=== PATIENT | female | born 1995 | race Caucasian/White ===

== ENCOUNTER 2023-01-15 12:52 | Emergency (ER) | payer BC, SELFPAY ==
[2023-01-15 13:03] VITALS: BP 100/65; PULSE 83; RESP 18; TEMP 36.8; O2SAT 97; BMI 19.7
--- NOTE | 2023-01-15 14:03 | ED.GENADULT ---
HPI - General Adult General Chief complaint: Urogenital Problems, Female Stated complaint: left flank pain, difficulty urinating Time Seen by Provider: 01/15/23 13:42 History of Present Illness HPI narrative: pt has been having dysuria for a few days, today having left flank pain 27-year-old female to male presenting to the emergency department with concern of painful urination. Symptoms now about 2 days. Has developed some left flank pain now. Hurts ?fucking bad?. No fever. Has been pushing fluids. No vomiting. No nausea noted. Has had urinary tract infections before. Related Data Home Medications Medication Instructions Recorded Confirmed pramipexole 0.125 mg tablet 0.125 mg PO DAILY 01/15/23 01/15/23 (Mirapex) testosterone 50 mg/mL 25 mg IM 01/15/23 intramuscular solution Previous Rx's Medication Instructions Recorded ciprofloxacin 500 mg/5 mL oral 500 mg (5 mL) PO BID 6 days #60 mL 01/15/23 suspension ciprofloxacin HCl 250 mg tablet 500 mg (2 x 250 mg) PO BID 6 days 01/15/23 #24 tabs hydrocodone 10 mg-acetaminophen 7.5 - 15 ml PO TID PRN pain #60 mL 01/15/23 325 mg/15 mL (15 mL) oral solution hydrocodone 5 mg-acetaminophen 325 1 - 2 tab PO TID PRN pain #8 tabs 01/15/23 mg tablet Allergies Allergy/AdvReac Type Severity Reaction Status Date / Time amoxicillin Allergy Verified 01/15/23 13:02 cefaclor [From Ceclor] Allergy Verified 01/15/23 13:02 clavulanic acid Allergy Verified 01/15/23 13:02 [From Augmentin] erythromycin base Allergy Verified 01/15/23 13:02 Penicillins Allergy Verified 01/15/23 13:02 Review of Systems Status of ROS: Reports: 6 or more systems reviewed and unremarkable except as noted in History and below PFSH PFS Social History Smoking Status: Unknown if ever smoked Exam Narrative: Exam Narrative: Curled up in exam chair clearly uncomfortable. Breathing easily though. Skin is warm and dry. Extremities well perfused without edema. Heart with regular rate and rhythm. Abdomen is soft. Pain somewhat reproducible in the left flank area. He often puts his hand at the flank there. Const: Vital Signs, click to edit/add: Vital Signs - 24 hr 01/15/23 13:03 Temperature 98.2 F Pulse Rate [Right Pulse Oximeter] 83 Respiratory Rate 18 Blood Pressure [Ri ght Upper Arm] 100/65 Pulse Oximetry 97 Oxygen Delivery Me thod Room Air Documenting provider has reviewed patient's vital signs: yes Course Vital Signs Vital signs: Initial Vital Signs Temperature 98.2 F 01/15/23 13:03 Temperature Source Temporal Artery Scan 01/15/23 13:03 Pulse Rate 83 01/15/23 13:03 Respiratory Rate 18 01/15/23 13:03 Blood Pressure 100/65 01/15/23 13:03 Blood Pressure Mean 76 01/15/23 13:03 Blood Pressure Position Sitting 01/15/23 13:03 Pulse Oximetry 97 01/15/23 13:03 Oxygen Delivery Method Room Air 01/15/23 13:03 Vital Signs Temperature 98.2 F 01/15/23 13:03 Pulse Rate 83 01/15/23 13:03 Respiratory Rate 18 01/15/23 13:03 Blood Pressure 100/65 01/15/23 13:03 Pulse Oximetry 97 01/15/23 13:03 Oxygen Delivery Method Room Air 01/15/23 13:03 Temperature 98.2 F 01/15/23 13:03 Pulse Rate 61 01/15/23 15:10 Respiratory Rate 16 01/15/23 15:10 Blood Pressure 89/64 L 01/15/23 15:10 Pulse Oximetry 97 01/15/23 15:10 Oxygen Delivery Method Room Air 01/15/23 15:10 Medical Decision Making MDM Narrative Medical decision making narrative: I think is reasonable to start here with urinalysis. Vitals look good. Differential includes cystitis, urinary tract infection otherwise possible pyelonephritis. Nephrolithiasis and ureteral stone/colic. Urinalysis is clearly positive and would seem to indicate infection. Reviewing records for allergies. Not convinced that these are full allergies. These will need to be clarified some point. This was discussed. [place] could use some pain management during time in the emergency department. Given ibuprofen and [place]. Markedly improved in this regard. I think I would treat this still as cystitis/UTI. See patient discharge plan. Lab Data Lab results reviewed: Yes I reviewed the patient's lab results Labs: Lab Results 01/15/23 Range/Units 13:23 Urine Color Yellow (Yellow) Urine Appearance Cloudy A (Clear) Urine pH 7.0 (5.0-8.5) Ur Specific [employer] 1.025 (1.000-1.030) Urine Protein 3+ A (Negative) Urine Glucose (UA) Negative (Negative) Urine Ketones Negative (Negative) Urine Blood 3+ A (Negative) Urine Nitrite Positive A (Negative) Urine Bilirubin Negative (Negative) Urine Urobilinogen 0.2 (0.2-1.0) Ur Leukocyte Esterase 1+ A (Negative) Urine RBC 10-25 A (0-2) Urine WBC 25-50 A (0-5) Urine WBC Clumps Few A (None) Ur Squamous Epith Cells Few (None-Few) Urine Bacteria Moderate A (None) Discharge Plan Discharge Clinical Impression: UTI (urinary tract infection) Patient Disposition: Home w/ Parent or Adult Condition: Stable Additional Instructions: Focus on hydration with unsugared/unsweetened liquid -- like water. Be seen for repeated vomiting, fever, marked increase in uncontrolled pain Urine culture will be pending here. Prescriptions: New ciprofloxacin 500 mg/5 mL suspension,microcapsule recon 500 mg PO BID 6 Days Qty: 60 0RF hydrocodone-acetaminophen 10-325 mg/15 mL(15 mL) solution 7.5 - 15 ml PO TID PRN (Reason: pain) Qty: 60 0RF ciprofloxacin HCl 250 mg tablet 500 mg PO BID 6 Days Qty: 24 0RF hydrocodone-acetaminophen 5-325 mg tablet 1 - 2 tab PO TID PRN (Reason: pain) Qty: 8 0RF Rx Instructions: cut in half as needed No Action testosterone 50 mg/mL solution 25 mg IM pramipexole [Mirapex] 0.125 mg tablet 0.125 mg PO DAILY Follow Up/Referrals: Niki Rodarte MD [Primary Care Provider] - Stand Alone Forms: [employer] Info Instructions
[2023-01-15 14:16] LABS: Appearance Urine Cloudy (Clear); Bilirubin Urine Negative (Negative); Blood Urine 3+ (Negative); Color Urine Yellow (Yellow); Glucose Urine Negative (Negative); Ketones Urine Negative (Negative); Leukocyte Esterase Urine 1+ (Negative); Nitrite Urine Positive (Negative); Protein Urine 3+ (Negative); Specific Gravity Urine 1.025 (1.000-1.030); Urobilinogen Urine 0.2 (0.2-1.0)
[2023-01-15 14:27] LABS: WBC Clumps Urine Few; WBC Urine 25-50 (0-5)
[2023-01-15 14:28] LABS: Bacteria Urine Moderate; Squamous Epithelial Cell Urine Few (None-Few)
[2023-01-15] MEDS: IBUPROFEN 200 MG TABLET 600 MG PO (14:34)
[2023-01-15] MEDS: HYDROCODONE-ACETAMIN 5-325 MG 1 TAB 2 TAB PO (14:34)
[2023-01-15 15:10] VITALS: BP 89/64; PULSE 61; RESP 16; O2SAT 97
== END 2023-01-15 15:45 | disposition home or self-care (01) ==
PROVIDERS: Family Medicine; Emergency Provider Family Medicine; PCP Family Medicine
DX: N39.0 Urinary tract infection, site not specified (principal)
CPT/HCPCS: 81001; 87086; 87186; 99283; 99284; A9270

== ENCOUNTER 2023-09-09 15:47 | Emergency (ER) | payer BC, SELFPAY ==
[2023-09-09 16:02] VITALS: BP 121/76; PULSE 100; RESP 18; TEMP 37; O2SAT 95; BMI 19.8
== END 2023-09-09 17:27 | disposition left against medical advice (07) ==
PROVIDERS: Emergency Provider Emergency Medicine; PCP Family Medicine
DX: Z53.29 Procedure and treatment not carried out because of patient's decision for other reasons (principal)

== ENCOUNTER 2023-09-10 08:30 | Emergency (ER) | payer BC, SELFPAY ==
[2023-09-10 08:33] VITALS: BP 105/70; PULSE 99; RESP 18; TEMP 37.2; O2SAT 96
--- NOTE | 2023-09-10 08:43 | XR_ITS ---
Patient: GLENN BARROSO Facility:?[facility] Patient ID:?[id number] Site Patient ID:?[id number]. Site :?1995 Study:?XRay-Chest 2V-09/10/2023 9:09:22 AM Ordering Physician:NIRMALA Final Report: INDICATION: Chest pain. TECHNIQUE: Chest 2 views. COMPARISON: None. FINDINGS: Cardiovascular and mediastinum: Heart size and vasculature are normal in caliber and appearance. Lungs and pleural spaces: Subtle patchy opacity at the right lung base concerning for developing pneumonia. No sign of pleural effusion. No pneumothorax. Bones and soft tissues: No significant findings. IMPRESSION: Subtle patchy opacity at the right lung base concerning for developing pneumonia. Dictated by Glenn York MD @ 09/10/2023 9:17:24 AM ----- ADDENDUM ----- Corrected INDICATION: Cough, shortness of breath Dictated by Glenn York MD @ Sep 10 2023 9:17AM Signed by:?Glenn York MD @09/10/2023 9:17:24 AM (Electronic Signature)
--- NOTE | 2023-09-10 08:44 | ED.GENADULT ---
HPI - General Adult General Date Seen: 09/10/23 Chief complaint: Extremity Pain/Injury, Lower Stated complaint: left leg pain, radiates to back Time Seen by Provider: 09/10/23 08:37 Source: patient Mode of arrival: ambulatory Limitations: no limitations History of Present Illness HPI narrative: Patient is a 28-year-old presenting to the emergency department for muscle aches. States it is worse in his left thigh and goes up his back. Symptoms have been going on for the past 4 days a says now his whole body feels sore. Describes the pain as severe muscle cramps. Does admit to having respiratory symptoms. Initially had a sore throat that has since resolved. Is still having a cough and says he is coughing up phlegm. Denies having symptoms like this at home. Also states his [id number] is having respiratory symptoms also. Is not aware of any other sick contacts. Denies fevers, chills, diarrhea, constipation. States he is drinking plenty of fluids. Has occasional nausea but no vomiting. Currently he is feeling slightly nauseated. No other concerns noted at this time. Does feel mildly short of breath. Denies chest pain, abdominal pain, headache, weakness, numbness. Has been taking Tylenol and ibuprofen at home without improvement in symptoms Related Data Home Medications Medication Instructions Recorded Confirmed pramipexole 0.125 mg tablet 0.125 mg PO DAILY 01/15/23 09/09/23 (Mirapex) testosterone 50 mg/mL 25 mg IM .week 01/15/23 09/09/23 intramuscular solution Previous Rx's Medication Instructions Recorded ciprofloxacin 500 mg/5 mL oral 500 mg (5 mL) PO BID 6 days #60 mL 01/15/23 suspension ciprofloxacin HCl 250 mg tablet 500 mg (2 x 250 mg) PO BID 6 days 01/15/23 #24 tabs hydrocodone 10 mg-acetaminophen 7.5 - 15 ml PO TID PRN pain #60 mL 01/15/23 325 mg/15 mL (15 mL) oral solution hydrocodone 5 mg-acetaminophen 325 1 - 2 tab PO TID PRN pain #8 tabs 01/15/23 mg tablet cyclobenzaprine 10 mg tablet 10 mg PO TID PRN muscle spasm #15 09/10/23 tabs doxycycline hyclate 100 mg capsule 100 mg PO BID #10 caps 09/10/23 ketorolac 10 mg tablet 10 mg PO Q8H PRN pain #15 tabs 09/10/23 ondansetron 4 mg disintegrating 4 mg PO Q6H #20 tabs 09/10/23 tablet Allergies Allergy/AdvReac Type Severity Reaction Status Date / Time amoxicillin Allergy Verified 01/15/23 13:02 cefaclor [From Ceclor] Allergy Verified 01/15/23 13:02 clavulanic acid Allergy Verified 01/15/23 13:02 [From Augmentin] erythromycin base Allergy Verified 01/15/23 13:02 Penicillins Allergy Verified 01/15/23 13:02 Review of Systems Status of ROS: Reports: 10 or more systems reviewed and unremarkable except as noted in History and below [facility] Social History Smoking Status: Unknown if ever smoked Exam Narrative: Exam Narrative: Const: Well-nourished, Well-developed, in mild distress Eyes: PERRL, no conjunctival injection, and symmetrical lids HENT: Atraumatic external nose and ears. Moist mucous membranes. Neck: Symmetric, trachea midline, No thyromegaly. CVS: RRR, No murmurs or gallops. Peripheral pulses 2+ and equal in all extremities RESP: Unlabored respiratory effort. Clear to auscultation bilaterally. GI: Nontender/Nondistended, No rebound or guarding. MSK:Extremities w/o deformity, Normal Active ROM Skin: Warm, Dry. No rashes or lesions. Neuro: Normal Muscle tone, No focal neurological deficits. Psych: Awake, Alert, & Oriented x3. Appropriate mood and affect. Const: Vital Signs, click to edit/add: Vital Signs - 24 hr 09/10/23 08:33 Temperature 99.0 F Pulse Rate [Right Pulse Oximeter] 99 Respiratory Rate 18 Blood Pressure [Ri ght Upper Arm] 105/70 Pulse Oximetry 96 Oxygen Delivery Me thod Room Air Course Vital Signs Vital signs: Initial Vital Signs Temperature 99.0 F 09/10/23 08:33 Temperature Source Temporal Artery Scan 09/10/23 08:33 Pulse Rate 99 09/10/23 08:33 Respiratory Rate 18 09/10/23 08:33 Blood Pressure 105/70 09/10/23 08:33 Blood Pressure Mean 81 09/10/23 08:33 Blood Pressure Position Sitting 09/10/23 08:33 Pulse Oximetry 96 09/10/23 08:33 Oxygen Delivery Method Room Air 09/10/23 08:33 Vital Signs Temperature 99.0 F 09/10/23 08:33 Pulse Rate 99 09/10/23 08:33 Respiratory Rate 18 09/10/23 08:33 Blood Pressure 105/70 09/10/23 08:33 Pulse Oximetry 96 09/10/23 08:33 Oxygen Delivery Method Room Air 09/10/23 08:33 Temperature 99.0 F 09/10/23 08:33 Pulse Rate 99 09/10/23 08:33 Respiratory Rate 18 09/10/23 08:33 Blood Pressure 105/70 09/10/23 08:33 Pulse Oximetry 96 09/10/23 08:33 Oxygen Delivery Method Room Air 09/10/23 08:33 Medications Administered Medications: Discontinued Medications Generic Name Dose Route Start Last Admin Trade Name Freq PRN Reason Stop Dose Admin Cyclobenzaprine HCl 10 mg 09/10/23 08:42 09/10/23 09:11 Cyclobenzaprine Hcl 10 Mg Tablet PO 09/10/23 08:43 10 mg ONCE ONE Administration Ketorolac Tromethamine 30 mg 09/10/23 08:42 09/10/23 09:12 Ketorolac 30 Mg/Ml Inj IM 09/10/23 08:43 30 mg ONCE ONE Administration Ondansetron HCl 4 mg 09/10/23 08:46 09/10/23 09:12 Ondansetron Odt 4 Mg Tab PO 09/10/23 08:47 4 mg ONCE ONE Administration Medical Decision Making [facility] Narrative Medical decision making narrative: Patient is a 28-year-old presenting for muscle aches. He has also has what sounds like viral symptoms. At this time these muscle aches he most likely related to these viral symptoms. He is not vomiting and states he is taking adequate p.o. intake so do not believe this is related to electrolyte abnormalities. He does complain of mild shortness of breath and a productive cough so I will order chest x-ray. Will also order COVID/flu/RSV swab. Patient given Zofran for his nausea. Was given Toradol and Flexeril for his muscle aches. Chest x-ray showed concerns for subtle right lung base opacity that could be a developing pneumonia. This was reviewed by myself and the radiologist. I will start him on doxycycline due to his allergies. He states he cannot take azithromycin due to allergies. He is flu positive and is likely the cause of his muscle aches. He is feeling better after the medication will be discharged home. Is not within the window for Tamiflu. Lab Data Labs: Lab Results 09/10/23 Range/Units 08:43 SARS-CoV-2 (PCR) Negative SARS-CoV-2 (Negative) Influenza Type A (PCR) POSITIVE PCR FLU A A (Negative) Influenza Type B (PCR) Negative PCR FLU B (Negative) RSV (PCR) Negative PCR RSV (Negative) Imaging Data Chest x-ray: Radiologist's impression: Subtle patchy opacity at the right lung base concerning for developing pneumonia. Dictated by Glenn York MD @ 09/10/2023 9:17:24 AM ----- ADDENDUM ----- Corrected INDICATION: Cough, shortness of breath Dictated by Glenn York MD @ Sep 10 2023 9:17AM Discharge Plan Discharge Clinical Impression: Influenza Patient Disposition: Home, Self-Care Condition: Improved Instructions: Influenza (DC) Additional Instructions: Take the doxycycline as directed. Follow-up with primary care provider symptoms are not improving. Use the Toradol and Flexeril as needed for pain. Do not take other NSAIDs such as ibuprofen or naproxen and Toradol at the same time. Return for new or worsening symptoms. Prescriptions: New ondansetron 4 mg tablet,disintegrating 4 mg PO Q6H Qty: 20 0RF ketorolac 10 mg tablet 10 mg PO Q8H PRN (Reason: pain) Qty: 15 0RF Rx Instructions: maximum total duration of 5 days from all oral, intranasal, or parenteral formulations cyclobenzaprine 10 mg tablet 10 mg PO TID PRN (Reason: muscle spasm) Qty: 15 0RF doxycycline hyclate 100 mg capsule 100 mg PO BID Qty: 10 0RF No Action testosterone 50 mg/mL solution 25 mg IM .week pramipexole [Mirapex] 0.125 mg tablet 0.125 mg PO DAILY ciprofloxacin 500 mg/5 mL suspension,microcapsule recon 500 mg PO BID 6 Days Qty: 60 0RF hydrocodone-acetaminophen 10-325 mg/15 mL(15 mL) solution 7.5 - 15 ml PO TID PRN (Reason: pain) Qty: 60 0RF ciprofloxacin HCl 250 mg tablet 500 mg PO BID 6 Days Qty: 24 0RF hydrocodone-acetaminophen 5-325 mg tablet 1 - 2 tab PO TID PRN (Reason: pain) Qty: 8 0RF Rx Instructions: cut in half as needed Follow Up/Referrals: Niki Rodarte MD [Primary Care Provider] - Stand Alone Forms: [employer] Info Instructions
[2023-09-10] MEDS: CYCLOBENZAPRINE HCL 10 MG TABLET PO (09:11)
[2023-09-10] MEDS: ONDANSETRON ODT 4 MG TAB PO (09:12)
[2023-09-10] MEDS: KETOROLAC 30 MG/ML inj IM (09:12)
[2023-09-10 09:50] LABS: PCR FLU A POSITIVE PCR FLU A (Negative); PCR FLU B Negative PCR FLU B (Negative); PCR RSV Negative PCR RSV (Negative); SARS PCR* Negative SARS-CoV-2 (Negative)
== END 2023-09-10 10:08 | disposition home or self-care (01) ==
PROVIDERS: Emergency Provider Student in an Organized Health Care Education/Training Program; PCP Family Medicine
DX: J09.X2 Influenza due to identified novel influenza A virus with other respiratory manifestations (principal)
CPT/HCPCS: 71046; 87631; 96372; 99283; A9270; J1885

== ENCOUNTER 2023-09-21 23:14 | Emergency (ER) | payer BC, SELFPAY ==
[2023-09-21 23:19] VITALS: BP 106/71; PULSE 97; RESP 20; TEMP 37.3; O2SAT 99
--- NOTE | 2023-09-21 23:57 | ED_ITS ---
HPI - General Adult General Chief complaint: Chest Pain Stated complaint: Chest pain, shortness of breath Time Seen by Provider: 09/21/23 23:23 History of Present Illness HPI narrative: CC: Chest Pain , Short of Breath pt. with sudden chest pain and shortness of breath at 2230. diagnosed with pneumonia 2 weeks ago. denies fevers, n/v, diarrhea. 28-year-old here with concern of chest pain. Describes feeling like chest was just being squeezed together. Was accompanied by shortness of breath. Pain is demonstrated to the lower rib margin now. Partner noticed this and she would have described this as a panic attack however she says it was not a panic attack. Apparently has had them before. Recently diagnosed and treated for pneumonia. Does smoke. Related Data Home Medications Medication Instructions Recorded Confirmed pramipexole 0.125 mg tablet 0.125 mg PO DAILY 01/15/23 09/21/23 (Mirapex) testosterone 50 mg/mL 25 mg IM Q7D 01/15/23 09/21/23 intramuscular solution Previous Rx's Medication Instructions Recorded doxycycline hyclate 100 mg capsule 100 mg PO BID #10 caps 09/10/23 ketorolac 10 mg tablet 10 mg PO QID PRN pain #20 tabs 09/22/23 Allergies Allergy/AdvReac Type Severity Reaction Status Date / Time amoxicillin Allergy Verified 09/21/23 23:21 cefaclor [From Ceclor] Allergy Verified 09/21/23 23:21 clavulanic acid Allergy Verified 09/21/23 23:21 [From Augmentin] erythromycin base Allergy Verified 09/21/23 23:21 Penicillins Allergy Verified 09/21/23 23:21 Review of Systems Status of ROS: Reports: 6 or more systems reviewed and unremarkable except as noted in History and below [facility] Medical History [id number] transgender person ?Z78.9 - Other specified health status (ICD-10) Surgical History (Updated 09/21/23 @ 23:48 by Arsalan Rogel RN) No significant past surgical history Social History Smoking Status: Current every day smoker What tobacco products do you use: cigarettes Second hand tobacco smoke exposure: Yes How often do you have a drink containing alcohol: never AUDIT-C Alcohol total score: 0 Non-prescribed substance use: denies use Exam Narrative: Exam Narrative: Is flushed. Eyes are quite injected. Generally feels warm. a little tremulous. pulse is elevated and regular. Pain is reproducible to anterior lower ribs. Lungs are clear. moving all extremities without difficulty. well perfused. no edema. Const: Vital Signs, click to edit/add: Vital Signs - 24 hr 09/21/23 23:19 09/22/23 00:05 09/22/23 00:33 Temperature 99.1 F 99.1 F Pulse Rate [Right Pulse Oximeter] 97 Respiratory Rate 20 Blood Pressure [Ri ght Upper Arm] 106/71 Pulse Oximetry 99 98 Oxygen Delivery Me thod Room Air 09/22/23 01:12 09/22/23 01:41 Temperature 98.5 F 98.5 F Pulse Rate [Right Pulse Oximeter] 83 83 Respiratory Rate 20 20 Blood Pressure [Ri ght Upper Arm] 110/74 110/74 Pulse Oximetry 98 Oxygen Delivery Me thod Room Air Documenting provider has reviewed patient's vital signs: yes Course Vital Signs Vital signs: Initial Vital Signs Respiratory Effort Normal, Spontaneous, Non-Labored 09/21/23 23:18 Respiratory Depth Normal 09/21/23 23:18 Respiratory Pattern Normal 09/21/23 23:18 Vital Signs Temperature 99.1 F 09/21/23 23:19 Pulse Rate 97 09/21/23 23:19 Respiratory Rate 20 09/21/23 23:19 Blood Pressure 106/71 09/21/23 23:19 Pulse Oximetry 99 09/21/23 23:19 Oxygen Delivery Method Room Air 09/21/23 23:19 Temperature 98.5 F 09/22/23 01:41 Pulse Rate 83 09/22/23 01:41 Respiratory Rate 20 09/22/23 01:41 Blood Pressure 110/74 09/22/23 01:41 Pulse Oximetry 98 09/22/23 01:12 Oxygen Delivery Method Room Air 09/22/23 01:12 Medications Administered Medications: Discontinued Medications Generic Name Dose Route Start Last Admin Trade Name Freq PRN Reason Stop Dose Admin Ketorolac Tromethamine 10 mg 09/22/23 00:30 09/22/23 00:33 Ketorolac 10 Mg Tablet PO 09/22/23 00:31 10 mg ONCE ONE Administration Lorazepam 0.5 mg 09/22/23 00:30 09/22/23 00:34 Lorazepam 0.5 Mg Tablet PO 09/22/23 00:31 0.5 mg ONCE ONE Administration Medical Decision Making MDM Narrative Medical decision making narrative: I would suspect panic attack here though unsure whether this or chest pain came first. Has had recent illness which may have brought about costochondritis. Considering recent pneumonia will recheck imaging for progression. Arrythmia? pneumothorax? He prefers not to have IV or needle stick. treating with ketorolac and lorazepam. ekg as below. CXR reviewed by me looks to be unremarkable. On reassment there have been no events on monitor. Looks markedly improved. Pain mostly gone and has been able to sleep. See patient discharge plan for further discussion. Medical Records Medical records reviewed: Yes I reviewed the patient's medical records Lab Data Lab results reviewed: Yes I reviewed the patient's lab results Labs: Lab Results 09/22/23 Range/Units 00:05 SARS-CoV-2 (PCR) Negative SARS-CoV-2 (Negative) Influenza Type A (PCR) Negative PCR FLU A (Negative) Influenza Type B (PCR) Negative PCR FLU B (Negative) RSV (PCR) Negative PCR RSV (Negative) ECG Data Attestation: I personally reviewed and interpreted this ECG as follows: (Normal sinus at a rate of 92. Without ischemic changes) Discharge Plan Discharge Clinical Impression: Chest wall pain Patient Disposition: Home w/ Parent or Adult Condition: Improved Additional Instructions: It seems you have some chest wall pain, possibly costochondritis. We do not see a pneumonia. Does not look like you were having a heart attack. I think your symptoms also amplified anxiety. I would consider taking this ketorolac, which I understand has worked for you before, regularly-dosed over the next 4 days. Maybe with a little food, take 1 tab every 8 hours. Be seen otherwise for persistent increase in pain, increasing shortness of breath. Prescriptions: New ketorolac 10 mg tablet 10 mg PO QID PRN (Reason: pain) Qty: 20 0RF Rx Instructions: maximum total duration of 5 days from all oral, intranasal, or parenteral formulations No Action doxycycline hyclate 100 mg capsule 100 mg PO BID Qty: 10 0RF testosterone 50 mg/mL solution 25 mg IM Q7D pramipexole [Mirapex] 0.125 mg tablet 0.125 mg PO DAILY Follow Up/Referrals: Niki Rodarte MD [Primary Care Provider] - Stand Alone Forms: [employer] Info Instructions
--- NOTE | 2023-09-22 00:01 | XR_ITS ---
Patient: MICHELLE BARROSO Facility:?[facility] Patient ID:?[id number] Site Patient ID:?[id number]. Site :?1995 Study:?XRay-Chest AP PORTABLE-09/22/2023 12:28:40 AM Ordering Physician:demetrio Final Report: INDICATION: Chest pain. TECHNIQUE: Chest 1 view. COMPARISON: 09/10/2023. FINDINGS: Cardiovascular and mediastinum: Heart size and vasculature are normal in caliber and appearance. Lungs and pleural spaces: Lungs are clear. No sign of infiltrate or mass. No sign of pleural effusion. No pneumothorax. Bones and soft tissues: Unremarkable for age. IMPRESSION: No evidence of an acute pulmonary process. Dictated by Thuan Earl MD @ 09/22/2023 12:52:23 AM Signed by:?Thuan Earl MD @09/22/2023 12:52:23 AM (Electronic Signature)
[2023-09-22 00:05] VITALS: O2SAT 98
[2023-09-22 00:33] VITALS: TEMP 37.3
[2023-09-22] MEDS: KETOROLAC 10 MG TABLET PO (00:33)
[2023-09-22] MEDS: LORazepam 0.5 MG TABLET PO (00:34)
[2023-09-22 00:43] LABS: PCR FLU A Negative PCR FLU A (Negative); PCR FLU B Negative PCR FLU B (Negative); PCR RSV Negative PCR RSV (Negative); SARS PCR* Negative SARS-CoV-2 (Negative)
[2023-09-22 01:12] VITALS: BP 110/74; PULSE 83; RESP 20; TEMP 36.9; O2SAT 98
[2023-09-22 01:41] VITALS: BP 110/74; PULSE 83; RESP 20; TEMP 36.9
== END 2023-09-22 01:41 | disposition home or self-care (01) ==
PROVIDERS: Emergency Provider Family Medicine; PCP Family Medicine
DX: R07.89 Other chest pain (principal)
CPT/HCPCS: 71045; 87631; 93005; 94761; 99284; A9270